=== PATIENT | male | born 1940 | race Caucasian/White ===

== ENCOUNTER 2016-07-01 15:37 | Emergency (ER) | payer MEDICARE, OTHER ==
[2016-07-01] MEDS ORDERED: Lidocaine 2%Visc 15ml 20 MG/ML UDC ONE (16:13)
[2016-07-01] MEDS ORDERED: MAGNESIUM HYDROXIDE/AL HYDROX 30 ML UDC PO ONE (16:13)
[2016-07-01] MEDS ORDERED: ASPIRIN 81 MG CHEW TAB PO ONE (16:36)
[2016-07-01] MEDS ORDERED: MAG HYDROX/AL HYDROX/SIMETH 30 ML, Lidocaine 2%Visc 15ml 20 MG, PHENobarb/HYOSCY/ATROPI... PO ONE ×3 (16:44)
--- NOTE | 2016-07-01 16:44 | ED Physician Documentation ---
Chest Pain - HISTORIAN Historian: patient, spouse - HPI Stated Complaint: chest pain/ back pain Chief Complaint: Chest Pain Additional Information: chest-epigastric pain rad straight through to back-actually std in back and worse there approkx 1 wk ago. worse w/movement but no trauma or lifting--abd pain went away w/ GI coctail. no emesis or diaphoresis. has at fib under tx Timing: gradual onset, still present (rates 5-6/10) Last known Well Date: 06/20/16 Last Known Well Time: 03:00 Context: rest Severity: moderate Quality: pressure, tightness, indigestion, burning, aching Chest Pain Radiation: no radiation Chest Pain Signs/Symptoms: denies: nausea, vomiting, diaphoresis, cool extremities Relieved By: antacids - ROS CONST: none MS/LYMPH: none GI/: none EYES/ENT: denies: problems with vision NEURO/PSYCH: none - PAST HX [place] risk factors: hypertension, A-Fib, other (probable prev mi) Neuro deficit: none GI disease: none Lung disease: none Surgeries/Procedures: none Allergies/Adverse Reactions: Allergies Allergy/AdvReac Type Severity Reaction Status Date / Time lisinopril Allergy Cough Verified 07/11/14 16:00 Home Medications: Ambulatory Orders Medication Instructions Recorded Ranitidine HCl [Zantac] 300 mg PO 1T #30 tablet 07/01/16 - SOCIAL HX Smoking History: non-smoker Alcohol Use: none Drug Use: none - FAMILY HX Family HX: other (f-d-lung ca-cigs m-d-htn cva) - VITAL SIGNS Vital Signs: Vital Signs Temp Pulse Resp BP Pulse Ox 131/89 03/02/15 18:25 - REVIEWED ASSESSMENTS Nursing Assessment Reviewed: Yes Vitals Reviewed: Yes ED Results Lab/Radiology - Orders Orders: ED Orders Category Date Time Status Continuous EKG monitoring Q30M Care 07/01/16 16:36 Ordered Continuous Pulse Oximetry Q30M Care 07/01/16 16:[address] Saline Lock/IV NOW Care 07/01/16 16:36 Ordered CHEST 1 VIEW [RAD] Stat Exams 07/01/16 16:[address] CHEST W/ CONTRAST Stat Exams 07/01/16 Ordered CBC/PLATELET/DIFF Routine Lab 07/01/16 16:36 Ordered CMP Routine Lab 07/01/16 16:36 Ordered CREATINE KINASE Routine Lab 07/01/16 16:36 Ordered TROPONIN I (cTnI) Stat Lab 07/01/16 16:36 Ordered Aspirin Med 07/01/16 16:36 Once 324 mg PO NOW ONE Lidocaine 2%Visc 15ml [Xylocaine] Med 07/01/16 16:13 Discontinued 300 mg .ROUTE .STK-MED ONE Magnesium Hydroxide/Al Hydrox [Maalox] Med 07/01/16 16:13 Discontinued 30 ml PO .STK-MED ONE EKG WITH COMPARISON Stat Ther 07/01/16 16:36 Ordered Chest Pain Physical Exam - EXAM General Appearance: mild distress, moderate distress EENT: eye inspection normal Neck: nml inspection, no carotid bruit. No: JVD present, lymphadenopathy Respiratory: no resp. distress, chest non-tender, nml breath sounds CVS: no murmur, no gallop, irregularly irreg. rhythm. No: reg. rate & rhythm Abdomen: soft, other (epigastric tenderness and discomfort) Skin: warm/dry, normal color. No: cyanosis, diaphoresis Extremities: non-tender, normal range of motion, no evidence of injury, no edema Neuro: oriented X3, CN's nml as tested, motor nml, sensation nml, mood/affect nml Discharge Clincal Impression: peptic ulcer disease Prescriptions: Ranitidine HCl [Zantac] 300 mg PO 1T #30 tablet Additional Instructions: pt also t tx pud. he has been totally asym since gi coctail Home Medications: Ambulatory Orders Ranitidine HCl [Zantac] 300 mg PO 1T #30 tablet 07/01/16 Comments: pt also had dense calcification in coroknary arteries. pt given copy ct to take to cardiologists soon Condition: Good Disposition: 01 HOME, SELF-CARE Decision to Admit: NO Decision Time: 18:38
[2016-07-01 17:23] LABS: MEAN CORPUSCULAR HEMOGLOBIN 33.6 pg (28.0-34.0); MEAN CORPUSCULAR VOLUME 99.3 fl (80.0-100.0)
[2016-07-01 17:24] LABS: BASOPHILS % 0.5 (0.0-1.5); MONOCYTES % 5.4 % (0.0-11.0); NEUTROPHILS # 8.9 # k/uL (1.4-7.7)
[2016-07-01 17:36] LABS: eGFR (African) > 60; eGFR (Non-African) > 60
--- NOTE | 2016-07-01 18:09 | Diagnostic Imaging Report ---
[facility] [address] [facility] [address] [place], [place]. [address] Report Submission Date: Jul 01, 2016 6:04:34 PM CDT Patient Study Name: FAISAL MCCLELLAND Date: Jul 01, 2016 5:43:15 PM CDT Modality Type: CT\SR Gender: M Description: CT CHEST W/ CONTRAST : 42 Institution: [facility] Physician: ABISAI HEREDIA - LAURA CT chest with contrast Date of study: 01 July 2016 CLINICAL HISTORY: CHEST AND MID BACK PAIN X ONE WEEK (Hx) / CHEST PAIN (DICOM Hx) TECHNIQUE: 5 mm contiguous axial images of the chest with contrast. Sagittal and coronal reconstructions. FINDINGS: there is no hilar or mediastinal mass. Aortic and great vessels calcification is present. Coronary artery calcifications are present. There is no aneurysm or intimal flap. The upper abdomen shows fatty change in the liver. Lung windows show clear peripheral lung anand. There is thoracic spondylosis IMPRESSION: No acute chest pathology . No evidence of dissection or pulmonary embolus Dense coronary artery calcification Fatty change in the liver Electronically signed on Jul 01, 2016 6:04:34 PM CDT by: Anthony ENGEL
[2016-07-01] MEDS ORDERED: 0.9 % SODIUM CHLORIDE 1,000 ML IV ONE ×2 (18:10→18:14)
[2016-07-01 19:36] VITALS: BP 135/81
== END 2016-07-01 19:35 | disposition home or self-care (01) ==
LOC: ED 15:37
DX: K27.9 Peptic ulcer, site unspecified, unspecified as acute or chronic, without hemorrhage or perforation (principal)
CPT/HCPCS: 71260; 80053; 82550; 84484; 85025; 99283; A9270-GY; J7030; Q9966; S1016

== ENCOUNTER 2016-07-31 15:10 | Outpatient (CLI) | payer MEDICARE, OTHER ==
[2016-07-31 16:09] LABS: eGFR (African) > 60; eGFR (Non-African) > 60
== END 2016-07-31 15:11 ==
LOC: LAB 15:10
PROVIDERS: ATTEND Family Medicine
DX: E78.2 Mixed hyperlipidemia (principal); Z12.5 Encounter for screening for malignant neoplasm of prostate
CPT/HCPCS: 36415; 80053; 80061; 84153

== ENCOUNTER 2016-08-15 08:25 | Outpatient (CLI) | payer MEDICARE, OTHER ==
[2016-08-15 09:09] LABS: eGFR (African) > 60; eGFR (Non-African) > 60
== END 2016-08-15 08:26 ==
LOC: LAB 08:25
PROVIDERS: ATTEND Family Medicine
DX: E87.1 Hypo-osmolality and hyponatremia (principal)
CPT/HCPCS: 36415; 80048

== ENCOUNTER 2016-12-20 12:44 | Inpatient (IN) | payer MEDICARE, OTHER ==
--- NOTE | 2016-12-20 12:49 | ED Physician Documentation ---
General Adult - HISTORIAN Historian: patient, spouse - HPI Stated Complaint: weakness, hypotension, racing heart Chief Complaint: General Adult Onset: hours (4) Timing: still present Severity: moderate Further Comments: yes (Pt is a 76 yo male with afib who has had weakness, irregular heart rate, hypotension and diaphoresis since this am. 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 VS were obtained by his pt's who is a nurse. Pt c/o feeling weak, tired, cold and clammy. Pt had slight nausea and slight sob, but no chest pain.) - ROS CONST: weakness EYES/ENT: none CVS/RESP: shortness of breath (slight) GI/: nausea (slight) MS/SKIN/LYMPH: none NEURO/PSYCH: dizziness - PAST HX Past History: hypertension, other (afib, possible previous ME, GERD) Allergies/Adverse Reactions: Allergies Allergy/AdvReac Type Severity Reaction Status Date / Time lisinopril Allergy Cough Verified 12/20/16 13:30 - SOCIAL HX Smoking History: non-smoker Alcohol Use: none Drug Use: none - FAMILY HX Family History: Yes (father: lung cancer; mother: htn, cva.) - VITAL SIGNS Vital Signs: Vital Signs Temp Pulse Resp BP Pulse Ox 135/81 07/01/16 19:35 - REVIEWED ASSESSMENTS Nursing Assessment Reviewed: Yes Vitals Reviewed: Yes Progress - Progress Progress: NS 500 cc IVF in ER admit to Dr. Ruiz. - EKG/XRAY/CT EKG: rhythm (afib HR=93.) XRAY: chest (No acute pulmonary process by portable technique.) ED Results Lab/Radiology - Orders Orders: ED Orders Category Date Time Status Continuous EKG monitoring Q30M Care 12/20/16 12:45 Ordered Continuous Pulse Oximetry Q30M Care 12/20/16 12:[address] IV Lock 1T Care 12/20/16 12:46 Ordered CHEST 1 VIEW [RAD] Stat Exams 12/20/16 12:45 Ordered CBC/PLATELET/DIFF Routine Lab 12/20/16 12:45 Ordered CKMB Stat Lab 12/20/16 Ordered CMP Routine Lab 12/20/16 12:45 Ordered CREATINE KINASE Routine Lab 12/20/16 12:45 Ordered NT-proBNP Stat Lab 12/20/16 Ordered TROPONIN I (cTnI) Stat Lab 12/20/16 12:45 Ordered Oxygen Daily Oxygen 12/20/16 12:45 Ordered EKG WITH COMPARISON Stat Ther 12/20/16 12:45 Ordered General Adult Physical Exam - PHYSICAL EXAM GENERAL APPEARANCE: moderate distress (anxious) EENT: eye inspection normal, pharynx normal NECK: normal inspection, supple RESPIRATORY: no resp distress, chest non-tender, breath sounds normal CVS: irregularly irregular rhy ABDOMEN: soft, no organomegaly, normal bowel sounds BACK: normal inspection, no CVA tenderness SKIN: warm/dry, pallor EXTREMITIES: non-tender, normal range of motion NEURO: oriented X3, motor nml, sensation nml Discharge Clincal Impression: Hypotension, near syncope, dehydration CHF (congestive heart failure) Qualifiers: Congestive heart failure type: unspecified congestive heart failure type Congestive heart failure chronicity: chronic Qualified Code(s): I50.9 - Heart failure, unspecified Condition: Stable Decision to Admit: [id number] Decision Time: 14:53
[2016-12-20 13:22] LABS: BASOPHILS % 0.5 (0.0-1.5); EOSINOPHILS % 2.9 % (0.0-6.8); MEAN CORPUSCULAR HEMOGLOBIN 31.9 pg (28.0-34.0); MEAN CORPUSCULAR VOLUME 95.9 fl (80.0-100.0); MONOCYTES % 5.1 % (0.0-11.0); NEUTROPHILS # 6.9 # k/uL (1.4-7.7)
[2016-12-20 13:40] LABS: eGFR (African) > 60; eGFR (Non-African) > 60
[2016-12-20] MEDS ORDERED: 0.9 % SODIUM CHLORIDE 1,000 ML IV ONE (13:43)
--- NOTE | 2016-12-20 14:44 | Diagnostic Imaging Report ---
BRINA TORRES [facility] [address] [facility] [address] [address] Report Submission Date: Dec 20, 2016 1:24:09 PM CDT Patient Study Name: FAISAL MCCLELLAND Date: Dec 20, 2016 1:14:41 PM CDT Modality Type: CR Gender: M Description: CHEST : 44 Institution: [facility] Physician: BRINA TORRES Examination: Portable chest History: Chest discomfort Comparison exam: None available Findings: Single view of the chest demonstrates a normal cardiac and mediastinal silhouette. Lung anand without focal infiltrate. No effusion. Cardiac attenuation of the left hemidiaphragm. Osseous structures are appropriate for age. Impression: No acute pulmonary process by portable technique. Electronically signed on Dec 20, 2016 1:24:09 PM CDT by: Marcello ENGEL
[2016-12-20 15:43] VITALS: BMI 32.8
--- NOTE | 2016-12-20 16:15 | History and Physical Report ---
History of Present Illnes - History of Present Illness Reason for Visit: Low BP History of Present Illness: Patient reports a few hours after taking BP meds today he started feeling weak. 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 Almost fell over and was diaphoretic. Nursing took his vital signs - BP 85/50 with irregular pulse in the 50's. Patient has afib. BP running in the low 100's and even upper 90's systolic. Had some issues wtih low BP so Dr. Claire (furnace liner) lowered ibersartan from 150 mg to 75 mg. Patient did not feel well with that dose and his BP went up "too high." In the ER patient found to have BUN 33 and Na 130. BNP was elevated so he was only given 500 cc of NS. BP improved and patient feeling much better. Cardiac enzymes normal. EKG afib. Will admit to moniter telemetry and do serial cardiac enzymes. - Past Medical History Cardiac: AFIB (Echo 04/18 - 55%), HTN Gastrointestinal: GERD, Other (Liver hemangioma) Rheumatologic: Gout - Past Surgical History Past Surgical History: Other (LIver biopsy 2004) - Past Family History Mother Family History: CAD, (84) Father Family History: Cancer (lung), (55) Brother 1 Family History: Cancer (liver), (45) - Past Social History Smoke: Quit (32 y.o.) Occupation: Retired Alcohol: Occassional Drugs: None Lives: With Family ( - [place]) - Health Maintenance Health Maintenance: Cholesterol, Influenza Vaccine, Pneumococcal Vaccine, Colonoscopy Influenza Vaccine: Current for this Influenza Season Pneumonia Vaccine: Yes Resuscitation Status: Resusciation Status Resuscitation Status Full Code Review of Systems - Review of Systems Constitutional: Weakness. negative: Fever Eyes: negative: pain ENT: negative: Ear Pain, Mouth Pain Respiratory: negative: Cough, Shortness of Breath Cardiovascular: Light Headedness. negative: Chest Pain, Palpitations Gastrointestinal: negative: Nausea, Vomiting, Abdominal Pain, Diarrhea, Constipation Genitourinary: negative: Dysuria, Frequency Musculoskeletal: negative: Neck Pain Skin: negative: Rash Neurological: Weakness - Medications/Allergies Allergies/Adverse Reactions: Allergies Allergy/AdvReac Type Severity Reaction Status Date / Time lisinopril Allergy Cough Verified 12/20/16 13:30 Current Inpatient Medications: Current Inpatient Medications Allopurinol (Zyloprim) 300 mg PO DAILY [facility] Losartan Potassium (Cozaar) 50 mg PO DAILY [facility] Rivaroxaban (Xarelto) 20 mg PO HS [facility] Stop: 12/24/16 23:59 Simvastatin (Zocor) 20 mg PO HS [facility] Sodium Chloride (Normal Saline Flush) 3 ml IV BID [facility] Sotalol HCl (Betapace) 120 mg PO BID [facility] Exam - Exam Vital Signs: Vital Signs (72 hours) 12/20/16 12/20/16 15:14 15:25 Temperature 97.5 F L Pulse Rate [ 94 H Left] Pulse Rate [ 77 Pulse ox] Respiratory 20 20 Rate Blood Pressure 127/74 [Left Arm] Blood Pressure 139/83 [Right Arm] O2 Sat by Pulse 98 100 Oximetry General: Alert, Oriented to Person, Oriented to Place, Oriented to Time, Cooperative, No acute distress HEENT: Atraumatic, PERRLA, EOMI, Mouth Mucous membr. moist/Donora Neck: Normal Range of Motion Lungs: Clear to auscultation Cardiovascular: Irregularly Irregular Abdomen: Normal bowel sounds, Soft, No tenderness Integumentary: Normal Extremities: No edema Neurological: Normal gait, Normal speech, Strength Equal Bilat, Cranial nerves 3 -12 NL, Reflexes 2+ Psych/Mental Status: Mental status NL, Mood NL, Appropriate Affect, Intact Judgment Assessment/Plan - Assessment/Plan (1) Hypotension Status: Acute Current Visit: Yes Qualifiers: Hypotension type: unspecified hypotension type Qualified Code(s): I95.9 - Hypotension, unspecified Plan: Patient has been having some low BP's for awhile but today experienced lower BP. Signs of mild dehydration. Patient received IVF. Will hold off giving more due to elevated BNP though no clinical findings of CHF. He is due to see Dr. Claire next month. Last echo was 2014. Likely needs to be repeated. Watch closely. Serial enzymes and telemetry. (2) Hypertension Status: Acute Current Visit: Yes Qualifiers: Hypertension type: essential hypertension Qualified Code(s): I10 - Essential (primary) hypertension Plan: Will consider a trial of ibersartan 75 mg bid rather than 150 mg at once vs. taking the medication at night. (3) CHF (congestive heart failure) Status: Acute Current Visit: Yes Qualifiers: Congestive heart failure type: unspecified congestive heart failure type Congestive heart failure chronicity: chronic Qualified Code(s): I50.9 - Heart failure, unspecified Plan: No h/o CHF and last Echo showed EF 55%. On ARB. Did not tolerated bblockers in past due to low BP. F/U with cardiology. (4) Atrial fibrillation Status: Acute Current Visit: No Qualifiers: Atrial fibrillation type: paroxysmal Qualified Code(s): I48.0 - Paroxysmal atrial fibrillation Plan: Stable. Continue xarelto. (5) Dehydration Status: Acute Current Visit: Yes Plan: Responded well to fluids. Hold for now. Push oral fluids. Repeat labs in am. VTE Assessment - RISK FACTOR SCORE VTE RISK FACTOR SCORES: AGE OVER 60 YEARS, CONGESTIVE HEART FAILURE OR MYOCARDIAL INFARCTION - RISK VTE LOW RISK: SCORE OF 1 OR LESS (RISK PROXIMAL DVT 0.4%) NO PROPHYLAXIS NEEDED VTE MODERATE RISK: SCORE OF 2 (RISK PROXIMAL DVT 2-4%) PROPHYAXIS NEEDED
[2016-12-20] MEDS: SIMVASTATIN 20 MG TABLET PO SCH ×2 (17:26→19:13)
[2016-12-20] MEDS ORDERED: RIVAROXABAN 10 MG TABLET PO ONE (18:22)
[2016-12-20] MEDS ORDERED: SALINE FLUSH 10 ML DISP.SYRIN IVF ONE (18:22)
[2016-12-20] MEDS ORDERED: SOTALOL HCL 80 MG TABLET PO ONE ×2 (18:22→23:05)
[2016-12-20] MEDS ORDERED: SIMVASTATIN 20 MG TABLET ONE (19:10)
[2016-12-20] MEDS: SOTALOL HCL 80 MG TABLET PO SCH (19:12)
[2016-12-20] MEDS: RIVAROXABAN 10 MG TABLET PO SCH (19:14)
[2016-12-20] MEDS: SALINE FLUSH 10 ML DISP.SYRIN IV SCH (19:15)
[2016-12-20] MEDS ORDERED: ALLOPURINOL 100 MG TABLET ONE (23:05)
[2016-12-20] MEDS ORDERED: LOSARTAN POTASSIUM 50 MG TABLET PO ONE (23:05)
[2016-12-21 01:25] LABS: eGFR (African) > 60; eGFR (Non-African) > 60
[2016-12-21 06:39] LABS: BASOPHILS % 1.1 (0.0-1.5); EOSINOPHILS % 2.5 % (0.0-6.8); MEAN CORPUSCULAR VOLUME 94.9 fl (80.0-100.0); MONOCYTES % 7.8 % (0.0-11.0); NEUTROPHILS # 5.5 # k/uL (1.4-7.7)
[2016-12-21] MEDS: SOTALOL HCL 80 MG TABLET PO SCH (08:26)
[2016-12-21] MEDS ORDERED: SALINE FLUSH 10 ML DISP.SYRIN IVF ONE (08:29)
[2016-12-21] MEDS: SALINE FLUSH 10 ML DISP.SYRIN IV SCH (08:30)
[2016-12-21] MEDS ORDERED: LOSARTAN POTASSIUM 50 MG TABLET PO SCH (09:00)
[2016-12-21] MEDS ORDERED: ALLOPURINOL 100 MG TABLET PO SCH (09:00)
--- NOTE | 2016-12-21 09:42 | Discharge Summary ---
Discharge Summary - Discharge Sumary History of Present Illness: Patient reports a few hours after taking BP meds today he started feeling weak. 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 Almost fell over and was diaphoretic. Nursing took his vital signs - BP 85/50 with irregular pulse in the 50's. Patient has afib. BP running in the low 100's and even upper 90's systolic. Had some issues wtih low BP so Dr. Claire (collection card clerk) lowered ibersartan from 150 mg to 75 mg. Patient did not feel well with that dose and his BP went up "too high." In the ER patient found to have BUN 33 and Na 130. BNP was elevated so he was only given 500 cc of NS. BP improved and patient feeling much better. Cardiac enzymes normal. EKG afib. Will admit to moniter telemetry and do serial cardiac enzymes. Condition at Discharge: Stable Home Medications: Ambulatory Orders Medication Instructions Recorded Irbesartan 75 mg PO BID #30 u2 12/21/16 Consultations this Visit: None Procedures this Visit: None Allergies/Adverse Reactions: Allergies Allergy/AdvReac Type Severity Reaction Status Date / Time lisinopril Allergy Cough Verified 12/20/16 13:30 Discharge Summary: Patient was admitted after an episode of symptomatic hypotension. Found to be in afib. He has a h/o afib but was in NSR last cardiology appt in 07/18. Takes sotalol and xarelto for his afib. BP responded well to 500 cc NS bolus. No other IVF given due to elevated BNP. Patient has no h/o CHF - last Echo 2014 showed EF 55%. He also was not clinically in CHF. He has an appt scheduled with cardiology 11-2. BP has been running lower at home. Will plan to cut ibersartan in half and do 75 mg bid to try to avoid the lower BP. reports he hasn't had much energy lately. This may help. Na was low 130 and 128. We have serum and urine osm pending as well as urine sodium. Will f/u as outpatient. On date of discharge, patient noted to be back in NSR. Hospital Course: Discharge Dx: Hypotension. Hypertension. Afib. Gout. Disp -home
[2016-12-21 12:04] VITALS: BP 134/85
[2016-12-25 05:11] LABS: URINE OSMOLALITY 702 mOsmol/kg
== END 2016-12-21 11:45 | disposition home or self-care (01) | DRG 316 ==
LOC: ED 12:44 → SOUTH 14:58
PROVIDERS: ADMIT Family Medicine; ATTEND Family Medicine
DX: I95.9 Hypotension, unspecified (principal); I10 Essential (primary) hypertension; I48.91 Unspecified atrial fibrillation; M10.9 Gout, unspecified
CPT/HCPCS: 36415; 71010; 80053; 82550; 82553; 83880; 83930; 83935; 84300; 84484; 85025; 93005; J7030; 99222; 99238; 99283; 99284; S1016

== ENCOUNTER 2017-03-20 11:10 | Outpatient (CLI) | payer MEDICARE, OTHER ==
[2017-03-20 12:17] LABS: eGFR (African) > 60; eGFR (Non-African) > 60
== END 2017-03-20 11:11 ==
LOC: LAB 11:10
PROVIDERS: ATTEND Internal Medicine Clinical Cardiac Electrophysiology
DX: I48.0 Paroxysmal atrial fibrillation (principal); I48.3 Typical atrial flutter
CPT/HCPCS: 36415; 80048

== ENCOUNTER 2017-04-01 13:18 | Outpatient (CLI) | payer MEDICARE, OTHER ==
--- NOTE | 2017-04-01 15:14 | Diagnostic Imaging Report ---
FREDRICK COTTER [facility] [address] [facility] [address] [address] Report Submission Date: Apr 01, 2017 1:46:58 PM CLINICAL RESEARCHER Patient Study Name: FAISAL MCCLELLAND Date: Apr 01, 2017 1:29:07 PM CLINICAL RESEARCHER Modality Type: CR Gender: M Description: SHOULDER : 44 Institution: [facility] Physician: FREDRICK COTTER Examination: Plain film shoulder History: Fall Comparison exams: None provided Findings: 3 views of the shoulder demonstrate normal cortical margins. No evidence for fracture or dislocation. Acromioclavicular joint degenerative changes. No soft tissue abnormality Impression: Acromioclavicular joint degenerative changes. No acute appearing osseous abnormality. If suspect soft tissue injury, consider obtaining MRI to further evaluate. Electronically signed on Apr 01, 2017 1:46:58 PM CLINICAL RESEARCHER by: Marcello ENGEL
== END 2017-04-01 13:20 ==
LOC: RAD 13:18
PROVIDERS: ATTEND Family Medicine
DX: M25.512 Pain in left shoulder (principal)
CPT/HCPCS: 73030

== ENCOUNTER 2017-05-07 10:05 | Outpatient (CLI) | payer MEDICARE, OTHER ==
[2017-05-07 10:31] LABS: BASOPHILS % 1.2 (0.0-1.5); EOSINOPHILS % 6.4 % (0.0-6.8); MEAN CORPUSCULAR HEMOGLOBIN 28.2 pg (28.0-34.0); MONOCYTES % 6.5 % (0.0-11.0); NEUTROPHILS # 4.9 # k/uL (1.4-7.7)
--- NOTE | 2017-05-07 11:20 | Diagnostic Imaging Report ---
FREDRICK COTTER [facility] [address] [facility] [address] [place], [place]. [address] Report Submission Date: May 07, 2017 11:20:33 AM SENIOR GAMEMASTER Patient Study Name: FAISAL MCCLELLAND D Date: May 07, 2017 10:33:46 AM SENIOR GAMEMASTER Modality Type: CT\SR Gender: M Description: CT BRAIN W/O CONTRAST : 42 Institution: [facility] Physician: FREDRICK COTTER Examination: CT head without contrast History: Fall Comparison exam: None available Technique: Noncontrast head CT protocol. Findings: Ventricles and sulci are prominent. Cerebrocerebellar parenchyma demonstrates periventricular low attenuation consistent with small vessel disease. No evidence for parenchymal hemorrhage. No evidence for mass or mass effect. No midline shift. No extra axial fluid collections. Partial visualization of the paranasal sinuses, mastoid air cells, orbits, skull and scalp without gross irregularity. Streak artifact from dental hardware. Impression: Age related changes. No acute parenchymal process. No hemorrhage. Electronically signed on May 07, 2017 11:20:33 AM SENIOR GAMEMASTER by: Marcello ENGEL
== END 2017-05-07 10:15 ==
LOC: LAB 10:05
PROVIDERS: ATTEND Family Medicine
DX: R51 Headache (principal); R53.83 Other fatigue; N53.9 Unspecified male sexual dysfunction
CPT/HCPCS: 36415; 70450; 84443; 85025

== ENCOUNTER 2017-10-08 08:48 | Outpatient (CLI) | payer MEDICARE, OTHER ==
[2017-10-08 19:50] LABS: TOTAL PROTEIN 7.4 g/dL (6.0-8.5)
== END 2017-10-08 08:50 ==
LOC: LAB 08:48
PROVIDERS: ATTEND Family Medicine
DX: E78.2 Mixed hyperlipidemia (principal)
CPT/HCPCS: 80053; 80061

== ENCOUNTER 2018-02-20 07:34 | Outpatient (CLI) | payer MEDICARE, OTHER ==
[2018-02-20 08:42] LABS: BASOPHILS % 0.4 (0.0-1.5); EOSINOPHILS % 6.4 % (0.0-6.8); MEAN CORPUSCULAR HEMOGLOBIN 29.1 pg (28.0-34.0); MONOCYTES % 11.8 % (0.0-11.0); NEUTROPHILS # 4.2 # k/uL (1.4-7.7)
--- NOTE | 2018-02-20 09:36 | Diagnostic Imaging Report ---
FREDRICK COTTER [facility] [address] [facility] [address] [address] Report Submission Date: Feb 20, 2018 8:40:34 AM CREATIVE INTERN Patient Study Name: FAISAL MCCLELLAND Date: Feb 20, 2018 6:49:00 AM CREATIVE INTERN Modality Type: US Gender: M Description: US RUQ : 42 Institution: [facility] Physician: FREDRICK COTTER Examination: Ultrasound right upper quadrant. History: Epigastric discomfort Findings: Sonographic evaluation of the right upper quadrant demonstrates the gallbladder without stones or sludge. Gallbladder wall measures 2.8 mm. Common bile duct measures 3.6 mm. No intrahepatic biliary dilation. Liver demonstrates normal homogeneous echogenicity. No mass or cyst. Normal flow on color analysis. Normal portal vein Doppler waveform. Right kidney measures 11.7 cm in length. No cortical mass or cyst. No hydronephrosis. Pancreatic region without gross irregularity. Impression: No gallstone or obstruction. Unremarkable abdominal ultrasound. Electronically signed on Feb 20, 2018 8:40:34 AM CREATIVE INTERN by: Marcello ENGEL
--- NOTE | 2018-02-20 09:42 | Diagnostic Imaging Report ---
FREDRICK COTTER [facility] [address] [facility] [address] Report Submission Date: Feb 20, 2018 8:38:53 AM OIL FIELD RIG BUILDER Patient Study Name: FAISAL MCCLELLAND Date: Feb 20, 2018 8:04:00 AM OIL FIELD RIG BUILDER Modality Type: DX Gender: M Description: CHEST : 42 Institution: [facility] Physician: FREDRICK COTTER Examination: PA and lateral chest. History: Evaluate lung anand. Findings: PA and lateral views of the chest demonstrates a normal cardiac and mediastinal silhouette. Parenchymal fullness near the cardiac apex. No other infiltrate. No blunting of the costophrenic margins. Osseous structures are appropriate for age. Impression: Cardiac apex parenchymal fullness - scarring versus mild infiltrate. No effusion. Correlate clinically. Electronically signed on Feb 20, 2018 8:38:53 AM OIL FIELD RIG BUILDER by: Marcello ENGEL
[2018-02-20 13:18] LABS: eGFR (Non-African) > 60
== END 2018-02-20 07:39 | disposition home or self-care (01) ==
LOC: RAD 07:34
PROVIDERS: ATTEND Family Medicine
DX: R10.11 Right upper quadrant pain (principal)
CPT/HCPCS: 36415; 71046; 76705; 80053; 85025

== ENCOUNTER 2018-05-17 20:53 | Emergency (ER) | payer MEDICARE, OTHER ==
[2018-05-17] MEDS ORDERED: CloNIDine HCL 0.1 MG TABLET PO ONE ×2 (21:13→21:50)
--- NOTE | 2018-05-17 21:18 | ED Physician Documentation ---
General Adult - HISTORIAN Historian: patient, spouse - HPI Stated Complaint: htn Chief Complaint: General Adult (High Blood Pressure) Additional Information: Patient is a 77-year-old male that presents to the ER with c/o high blood pressure. Patient states that he had a headache yesterday afternoon and his had him check his blood pressure and it was 211/100. His called their PCP and was told to double his blood pressure medication so they increased the Ibasartan from 75mg BID to 150 mg BID. 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 He denies headache this evening, denies chest pain & shortness of breath, no nausea or vomiting, no difficulty swallowing- no numbness or tingling. Onset: days ago (Started yesterday) Timing: still present Severity: mild Modifying Factors: Denies- had a headache yesterday Further Comments: no - ROS CONST: no problems EYES/ENT: none CVS/RESP: none GI/: none MS/SKIN/LYMPH: none NEURO/PSYCH: headache (yesterday- pressure) - PAST HX Past History: A-Fib, hypertension, other (HLD, GERD, GOUT) Other History: other (Hemangioma of liver) Surgeries/Procedures: other (ablasion 2017, Liver biopsy 2004) Immunizations: influenza, UTD Allergies/Adverse Reactions: Allergies Allergy/AdvReac Type Severity Reaction Status Date / Time lisinopril AdvReac Cough Verified 05/17/18 21:36 Home Medications: Ambulatory Orders Medication Instructions Recorded Aspirin EC [Ecotrin] 81 mg PO DAILY 05/17/18 CloNIDine HCL [Catapress] 0.1 mg PO BID 30 Days #60 tablet 05/17/18 Metoprolol Tartrate [Lopressor] 25 mg PO DAILY 05/17/18 - SOCIAL HX Smoking History: quit greater than 1 year Alcohol Use: occasionally Drug Use: none - FAMILY HX Family History: Yes - VITAL SIGNS Vital Signs: Vital Signs Temp Pulse Resp BP Pulse Ox 97.9 F 71 16 194/102 95 05/17/18 20:53 05/17/18 20:53 05/17/18 20:53 05/17/18 20:53 05/17/18 20:53 Progress - Progress Progress: 22:45 pt is resting comfortably- still has no complaints 23:00 blood pressure slowly coming down- however still elevated after an hour after clonidine 0.1 mg. Will give 10 mg of Hydralazine IVP and monitor. 23:23 pressure is improving 160/76. Patient and are ready to go home- patients has no complaints or concerns. He will start clonidine 0.1 mg by mouth twice a day- he will check blood pressure daily and keep a log- he will take log to follow up appointment with PCP. - EKG/XRAY/CT EKG: NSR ED Results Lab/Radiology - Lab Results Lab Results: Urinalysis is negative- he is well hydrated - Radiology Radiology Impressions: EKG NSR rate of 75 - Orders Orders: ED Orders Category Date Time Status Continuous EKG monitoring Q30M Care 05/17/18 21:12 Active Continuous Pulse Oximetry Q30M Care 05/17/18 21:[address] IV Lock 1T Care 05/17/18 21:12 Active CBC/PLATELET/DIFF Routine Lab 05/17/18 21:12 Ordered CKMB Stat Lab 05/17/18 Ordered CMP Routine Lab 05/17/18 21:12 Ordered CREATINE KINASE Routine Lab 05/17/18 21:12 Ordered TROPONIN I (cTnI) Stat Lab 05/17/18 Ordered CloNIDine HCL [Catapress] Med 05/17/18 21:13 Discontinued 0.2 mg PO NOW ONE EKG WITH COMPARISON Stat Ther 05/17/18 21:12 Ordered General Adult Physical Exam - PHYSICAL EXAM GENERAL APPEARANCE: no distress EENT: eye inspection normal, ENT inspection normal, pharynx normal, KEYA NECK: normal inspection RESPIRATORY: chest non-tender, breath sounds normal CVS: reg rate & rhythm, heart sounds normal, equal pulses ABDOMEN: soft, normal bowel sounds SKIN: warm/dry, normal color EXTREMITIES: normal range of motion NEURO: oriented X3, CN's nml as tested, motor nml, sensation nml, mood/affect nml, cognition normal Discharge Clincal Impression: Hypertension Referrals: Sowmya Ruiz MD [Primary Care Provider] - 2 Days Additional Instructions: 1. Start taking Clonidine 0.1 mg by mouth twice a day 2. Continue with home medication as instructed by provider 3. Monitor blood pressure daily- document on a log- and take to follow up appointment 4. Make appointment with PCP next week 5. Return to ER if you experience facial droop, weakness, unable to speak clearly, chest pain, or shortness of breath. Condition: Good Disposition: 01 HOME, SELF-CARE Decision to Admit: NO Decision Time: 23:25
[2018-05-17 22:03] LABS: eGFR (Non-African) > 60
[2018-05-17 22:33] LABS: SEGMENTED NEUTROPHILS % 60 % (39-79)
[2018-05-17 22:34] LABS: ANISOCYTOSIS 1+ (NEGATIVE); EOSINOPHILS % 6 % (0-7); HYPOCHROMASIA 2+ (NEGATIVE); MONOCYTES % 11 % (0-11)
[2018-05-17 22:35] LABS: PLT EST. EST. AGREES W/PLT CT
[2018-05-17] MEDS ORDERED: hydrALAZINE HCL 20 MG/1 ML IVP ONE (22:48)
[2018-05-17 23:38] VITALS: BP 167/76
[2018-05-18 00:07] LABS: APPEARANCE,URINE CLEAR (CLEAR); COLOR,URINE YELLOW (YELLOW); OCCULT BLOOD,URINE NEGATIVE (NEGATIVE); PH URINE 6.5 (5.0 - 8.0); UROBILINOGEN URINE 0.2 Eu (0.2-1.0)
== END 2018-05-17 23:23 | disposition home or self-care (01) ==
LOC: ED 20:53
DX: I10 Essential (primary) hypertension (principal); Z87.891 Personal history of nicotine dependence
CPT/HCPCS: 36415; 80053; 81002; 82550; 82553; 84484; 85025; 93005; 96374; 99283; 99284; J0360; S1016

== ENCOUNTER 2018-11-06 11:28 | Outpatient (CLI) | payer MEDICARE, OTHER ==
--- NOTE | 2018-11-06 12:00 | Diagnostic Imaging Report ---
FREDRICK COTTER [facility] [id number] [facility] [address] [place], [place]. [address] Report Submission Date: Nov 06, 2018 11:56:29 AM CDT Patient Study Name: FAISAL MCCLELLAND Date: Nov 06, 2018 11:27:07 AM CDT Modality Type: DX Gender: M Description: CHEST 2VIEW : 44 Institution: [facility] Physician: FREDRICK COTTER Examination: PA and lateral chest. History: Evaluate lung anand. Comparison exam: 20 February 2018 Findings: PA and lateral views of the chest demonstrates a normal cardiac and mediastinal silhouette. Mildly tortuous aorta with vascular calcifications. Stable lung base scarring. No focal infiltrate. No blunting of the costophrenic margins. Osseous structures are appropriate for age. Impression: Stable lung base scarring. No acute appearing pulmonary process. Electronically signed on Nov 06, 2018 11:56:29 AM CDT by: Marcello ENGEL
== END 2018-11-06 11:30 ==
LOC: RAD 11:28
PROVIDERS: ATTEND Family Medicine
DX: R05 Cough (principal)
CPT/HCPCS: 71046